=== PATIENT | female | born 1970 | race African-American/Black ===

== ENCOUNTER 2016-12-17 09:52 | Outpatient (CLI) | payer BC ==
[~2016-12-17] VITALS: Ht 152.4 cm; Wt 84.2 kg
[2016-12-17 10:04] VITALS: BP 135/82
[2016-12-17 10:33] LABS: BASOPHILS % (AUTO) 1 % (0-10); EOSINOPHILS # (AUTO) 0.4 10^3/uL (0.0-0.3); EOSINOPHILS % (AUTO) 8 % (0-10); LYMPHOCYTES # (AUTO) 1.8 X 10^3 (1.0-4.0); LYMPHOCYTES % (AUTO) 42 % (12-44); MEAN CORPUSCULAR HEMOGLOBIN 24 PG (25-34); MEAN CORPUSCULAR HGB CONC 33 G/DL (32-36); MEAN CORPUSCULAR VOLUME 75 FL (80-99); MEAN PLATELET VOLUME 11.4 FL (7.4-10.4); MONOCYTES # (AUTO) 0.3 X 10^3 (0.0-1.0); MONOCYTES % (AUTO) 8 % (0-12); NEUTROPHILS # (AUTO) 1.7 X 10^3 (1.8-7.8); NEUTROPHILS % (AUTO) 40 % (42-75); PLATELET COUNT 326 10^3/uL (130-400); RED CELL DISTRIBUTION WIDTH 16.1 % (10.0-14.5); WHITE BLOOD COUNT 4.2 10^3/uL (4.3-11.0)
== END 2016-12-17 11:49 | disposition home or self-care (01) ==
LOC: PREOP 09:52
PROVIDERS: ATTEND Obstetrics & Gynecology
DX: Z01.812 Encounter for preprocedural laboratory examination (principal); D25.9 Leiomyoma of uterus, unspecified; D64.9 Anemia, unspecified
CPT/HCPCS: 36415; 85025; 86850; 86900; 86901

== ENCOUNTER 2016-12-24 06:45 | Day surgery (SDC) | payer BC ==
[~2016-12-24] VITALS: Ht 152.4 cm; Wt 84.2 kg
[2016-12-24] MEDS ORDERED: NS (IVPB) 50 ML ONE (07:13)
[2016-12-24] MEDS ORDERED: ceFAZolin 1,000 MG (ANCEF) VIAL ONE (07:13)
[2016-12-24] MEDS: LACTATED RINGERS 1,000 ML IV PRN ×2 (07:15→08:55)
[2016-12-24] MEDS ORDERED: DEXAMETHASONE PF 10 MG/ML (DECADRON) VIAL ONE (07:16)
[2016-12-24] MEDS ORDERED: proPOfol 200 MG/20 ML (DIPRIVAN) VIAL IV ONE (07:17)
[2016-12-24] MEDS ORDERED: MIDAZOLAM 2 MG/2 ML (VERSED) VIAL ONE (07:17)
[2016-12-24] MEDS ORDERED: fentaNYL INJECTION 250 MCG/5 ML AMP ONE (07:17)
[2016-12-24] MEDS ORDERED: ONDANSETRON 4 MG/2 ML (SDV) Z0FRAN ONE (07:17)
[2016-12-24] MEDS ORDERED: ROCURONIUM 50 MG/5 ML (ZEMURON) VIAL IV ONE (07:17)
[2016-12-24] MEDS ORDERED: SEVOFLURANE (ULTANE) 15 ML INHAL SOLN ONE (07:17)
[2016-12-24] MEDS ORDERED: LIDOCAINE PF 2% 10 ML (XYLOCAINE) AMP ONE (07:17)
[2016-12-24 07:30] VITALS: BP 134/84
--- NOTE | 2016-12-24 08:08 | Progress Note-Pre Operative ---
Pre-Operative Progress Note H&P Reviewed The H&P was reviewed, patient examined and no changes noted. Date H&P Reviewed: Dec 24, 2016 Time H&P Reviewed: 08:07 Pre-Operative Diagnosis: DUB/mmenorrhagia/fibroid JASEMET MACIAS MD Dec 24, 2016 8:08 am
[2016-12-24] MEDS ORDERED: BUP/EPI 0.25% 1:200,000 (MARCAINE) 30 ML VIAL ONE (08:09)
[2016-12-24] MEDS ORDERED: CATHETER FLUSH 10 ML SYR IV PRN (08:15)
[2016-12-24] MEDS ORDERED: BENZOCAINE/MENTHOL (DERMOPLAST) 56 ML CAN TP PRN (08:15)
[2016-12-24] MEDS ORDERED: PROMETHAZINE INJ 25 MG/ML (PHENERGAN) AMP IM PRN (08:15)
[2016-12-24] MEDS ORDERED: ONDANSETRON 4 MG/2 ML (SDV) Z0FRAN IVP PRN ×2 (08:15→10:30)
[2016-12-24] MEDS ORDERED: MEPERIDINE (DEMEROL) INJ 100 MG/ML IM PRN (08:15)
[2016-12-24] MEDS ORDERED: WATER (STERILE) FOR INJ 10 ML BTL INJ ONE (08:15)
[2016-12-24] MEDS ORDERED: oxyCODONE/APAP 10/325MG (PERCOCET 10) TABLET PO PRN (08:15)
[2016-12-24] MEDS ORDERED: ceFAZolin 1 GM/NS 50 ML IVPB IV ONE ×2 (08:15)
[2016-12-24] MEDS ORDERED: ESTROGENS CONJ IV 25 MG/5 ML (PREMARIN) VIAL IVP ONE (08:15)
[2016-12-24] MEDS ORDERED: LACTATED RINGERS 1,000 ML IV ONE (09:12)
[2016-12-24] MEDS ORDERED: GLYCOPYRROLATE 0.2 MG/ML (ROBINUL) 2 ML VIAL ONE (09:12)
[2016-12-24] MEDS ORDERED: NEOSTIGMINE (BLOXIVERZ ) 1 MG/1ML 10 ML VIAL ONE (09:12)
[2016-12-24] MEDS ORDERED: ESTRADIOL VAGINAL CREAM 42.5 GM (ESTRACE) VG ONE (09:16)
[2016-12-24] MEDS ORDERED: morphine INJ 10 MG/ML 1ML (SYR OR VIAL) ONE (09:30)
[2016-12-24] MEDS: morphine INJ 10 MG/ML 1ML (SYR OR VIAL) IVP PRN ×2 (10:27→10:32)
[2016-12-24] MEDS ORDERED: fentaNYL INJECTION 100 MCG/2 ML AMP IVP PRN (10:30)
[2016-12-24] MEDS: KETOROLAC 30 MG/ML VIAL IVP SCH ×3 (10:33→23:28)
[2016-12-24] MEDS: HYDROmorphone (DILAUDID) 2 MG/ML VIAL IVP PRN ×2 (10:40→10:50)
[2016-12-24] MEDS: D5 LR IV SOLUTION 1,000 ML IV SCH ×2 (11:45→19:49)
[2016-12-24 12:00] VITALS: BP 118/72
[2016-12-24 16:00] VITALS: BP 139/84
[2016-12-24] MEDS: SIMETHICONE 80 MG (MYLICON) CHEW PO SCH (19:48)
[2016-12-24 20:00] VITALS: BP 116/67
[2016-12-24] MEDS ORDERED: IBUPROFEN 600 MG (MOTRIN) TAB PO ONE (23:08)
[2016-12-24] MEDS ORDERED: IBUPROFEN 800 MG (MOTRIN) TAB PO ONE (23:09)
[2016-12-24] MEDS: IBUPROFEN 800 MG (MOTRIN) TAB PO SCH (23:22)
[2016-12-24 23:34] VITALS: BP 144/75
[2016-12-25] MEDS: KETOROLAC 30 MG/ML VIAL IVP SCH (02:15)
[2016-12-25] MEDS: D5 LR IV SOLUTION 1,000 ML IV SCH (02:40)
[2016-12-25] MEDS ORDERED: IBUPROFEN 800 MG (MOTRIN) TAB PO ONE (04:28)
[2016-12-25 05:00] VITALS: BP 137/78
--- NOTE | 2016-12-25 08:19 | Progress Note-Standard ---
Standard Progress Note Progress Notes/Assess & Plan Progress/Assessment & Plan this patient is without complaint. She is ambulating, voiding, tolerating by mouth well, patient has good pain control and is requesting discharge home. She denies chest pain, denies shortness of breath, denies nausea vomiting, and denies headache. Vital Signs Date Time Temp Pulse Resp B/P (MAP) Pulse Ox O2 Delivery O2 Flow Rate FiO2 12/25/16 05:00 99.4 75 18 137/78 100 Room Air 12/24/16 23:34 98.3 68 18 144/75 97 Room Air 12/24/16 20:00 98.5 88 18 116/67 98 Room Air 12/24/16 16:00 97.5 62 17 139/84 100 Room Air 12/24/16 12:00 97.3 63 17 118/72 100 Room Air 12/24/16 10:50 97.4 12/24/16 10:40 97.4 12/24/16 10:33 97.4 12/24/16 10:32 97.4 12/24/16 10:27 97.4 I & O 12/25/16 07:00 Intake Total 5015 ml Output Total 3875 ml Balance 1140 ml vital signs are stable. Patient afebrile. The abdomen is benign. Bowel sounds are present in all 4 quadrants. Extremities show no clubbing cyanosis. There is no Homans sign. Assessment and plan postoperative day number 1 status post total hysterectomy with bilateral salpingo-oophorectomy and posterior posterior vaginal repair with enterocele repair doing well. Plan is for discharge home with follow-up in clinic. Final Diagnosis dysfunctional uterine bleeding/menorrhagia/uterine fibroids JASMEET MACIAS MD Dec 25, 2016 8:19 am
[2016-12-25] MEDS ORDERED: IBUP-1780 PO (08:21)
[2016-12-25] MEDS ORDERED: OXYC-465 PO (08:21)
[2016-12-25] MEDS ORDERED: ESTR1TAB24 PO (08:21)
[2016-12-25] MEDS ORDERED: DOCU100C37 PO (08:21)
--- NOTE | 2016-12-25 08:22 | Discharge Instructions ---
Discharge Instructions Discharge Medications New, Converted or Re-Newed RX: RX on Chart Patient Instructions Patient Instructions: as directed Return to The Hospital For: as directed Activity & Diet Discharge Diet: No Restrictions Activity as Tolerated: No Orders-Post D/C & Referrals Follow Up Appt: return to clinic with me on Tuesday, December 29, 2016 for staple removal Call to make follow up appt. for patient in 4 weeks. Activity: Rest for 24 hours, than as tolerated. Wound Care: May remove Band-Aid tomorrow. Replace as desired. Keep incisions clean and dry. Wash daily with soap and water. Please call in RX to patient pharmacy. Diet: As tolerated-Clear Liquids only if nauseated. Tomorrow, may shower or tub bathe as desired. No driving for 24 hours, no alcoholic beverages for 24 hours, and nothing per vagina (no tampons, douching, or intercourse) for 8 weeks. Patient to return to the clinic as soon as possible for: Temperature greater than 101F, Severe Pain, Foul discharge from incision or vagina, Excessive Bleeding (more than a period). JASMEET MACIAS MD Dec 25, 2016 8:22 am
[2016-12-25] MEDS ORDERED: ESTRADIOL 1 MG TAB (ESTRACE) PO SCH (09:00)
[2016-12-25] MEDS ORDERED: DOCUSATE SODIUM 100 MG (COLACE) CAP PO SCH (09:00)
[2016-12-25] MEDS: IBUPROFEN 800 MG (MOTRIN) TAB PO SCH (09:09)
[2016-12-25 09:10] VITALS: BP 104/86
[2016-12-25] MEDS: SIMETHICONE 80 MG (MYLICON) CHEW PO SCH (09:24)
--- NOTE | 2016-12-28 09:03 | OPERATIVE REPORT ---
PROCEDURE PHYSICIAN: JASMEET MACIAS DATE OF PROCEDURE: 12/24/2016 PREOPERATIVE DIAGNOSES: 1. Dysfunctional uterine bleeding. 2. Menorrhagia. 3. Uteromegaly. 4. Vaginal prolapse. 5. Stress incontinence. POSTOPERATIVE DIAGNOSES: 1. Dysfunctional uterine bleeding. 2. Menorrhagia. 3. Uteromegaly. 4. Vaginal prolapse. 5. Stress incontinence. OPERATIVE PROCEDURE: Total laparoscopic hysterectomy with bilateral salpingo- oophorectomy as well as some adhesiolysis with robotic assistance followed by anterior and posterior vaginal repairs. OPERATIVE DESCRIPTION: With the patient in the supine position, under satisfactory general anesthesia, she was repositioned in dorsal lithotomy position in the [facility] and prepped and draped usual fashion for abdominal and vaginal surgery using robotic assistance. Weighted speculum was placed in posterior fornix of the vagina. Cervix exposed and grasped anteriorly with single-tooth tenaculum. The uterus sounded to 13 cm with uterine sound. The cervix was then serially dilated with Jamar dilators to accommodate a DENISE 2 manipulator, which is placed using a 6 mm x 8 cm uterine probe, a 35 mm colpotomy ring and sutures of number 1 Vicryl at the 3 and 9 o'clock positions of the cervix for securement of the cervix to the manipulator. Lui cath was placed in the urinary bladder. The patient was brought in low dorsal lithotomy position. A 12 mm incision made 4 cm superior to the umbilicus. 8 mm incisions were made 9 cm lateral to the umbilicus at the level of umbilicus. All 3 incision sites were infiltrated with 0.25% Marcaine with epinephrine prior to incision. A Veress needle was placed through the umbilical incision. Correct placement confirmed with the water drop test and the abdomen was insufflated with 2.4 liters of carbon dioxide. The Veress needle was removed and a 12 mm port placed. The laparoscope was introduced and 8 mm ports were placed under direct vision and the lateral incisions. The patient was now placed in Trendelenburg, allowing the bowel to spill up out of the pelvis exposing normal but somewhat atretic appearing ovaries with a likely corpus luteal cyst on the left. The uterus was multilobular with large fibroids involving the entire body of the uterus. The ureters were seen to peristalt bilaterally. The appendix was normal in appearance. The tip of the appendix had adhesions down into the pelvis that was long, light and filmy. This was divided and as it was a vascular, no bleeding was occurred there. The appendix was left in situ. The right tube and ovary were grasped and elevated. The vessel sealer was used to clamp across the IP ligament. That ligament was then cauterized, and divided. That was continued stepwise across the mesovarium to the round ligaments and then across the round ligament and broad ligaments to the side of uterus and then down onto the cardinal ligament. The same procedure was performed on the left allowing for removal of both tubes and ovaries eventually with the uterus. The anterior lower uterine segment was exposed. The vessel sealer was replaced with a monopolar shear. A bipolar fenestrated grasper had been on the left this entire time. The anterior lower uterine segment peritoneum was divided. The bladder was carefully dissected down off of the lower uterine segment and off of the cervix. The colpotomy incision was then made at 12 o'clock position and continued circumferentially until the entire colpotomy ring was exposed, freeing the uterus, tubes and ovaries, which was extracted with some difficulty through the vagina due to the large nature of the uterus. The vaginal cuff was now closed using a Cobra grasper on the left and a phillip cut needle transit mixer driver on the right using 2 barbed V lock sutures starting first from the right angle and then from the left including the uterine vessels in the closure to insure hemostasis. The peritoneum was brought back down over the vaginal cuff with the last 2 stitches taken. Hemostasis was complete. The pelvis was irrigated and examined for hemostasis and for abnormal pathology. Everything looked normal and with no bleeding, the procedure was terminated. The operative instruments were removed under direct vision as were the ports. The patient brought out of Trendelenburg. The abdomen was evacuated of the insufflating gas in the process of removing the port. The skin incisions were closed with tino after the fascia at the umbilical incision was closed with [id number] suture of 2-0 Vicryl. The patient was now repositioned in dorsal lithotomy position in the [facility] for anterior and posterior vaginal repairs. The anterior repair was affected by placing Jeramy clamps on the anterior vaginal wall, opening the vaginal wall with Metzenbaum scissors, exposing the bladder and dissecting back to the pubic rami bilaterally. The endopelvic fascia was then plicated with 2-0 Vicryl sutures elevating the bladder and lengthening the urethra and effectively including a Esha plication for support of the urethra. Lui catheter had been left in the urinary bladder during this time and the Lui catheter was freed and moved mobile in urethra. With the support completed, the redundant anterior vaginal muscularis and mucosa was removed sharply. The vaginal wall was then closed with a running lock suture of 3-0 Vicryl Rapide. Posterior repair was affected by placing Jeramy clamps on the perineum and hymenal ring at 5 and 7 o'clock positions. An inverted triangle of skin was removed from the perineal body and an upright triangle from the posterior vaginal floor. The rectovaginal space was dissected to near its apex where there was a small enterocele encountered. This was reduced and plicated with 2, 2-0 Vicryl pursestring sutures. The rectovaginal space was then obliterated with additional suture of 2-0 Vicryl. The perineal body was restored with 2-0 Vicryl sutures and then the redundant posterior vaginal muscularis mucosa was removed sharply. The vaginal wall was closed with running locked suture of 3-0 Vicryl Rapide. That closure was continued past the hymenal ring down on the perineal body then back up subcutaneous to where the suture could be tied the hymenal ring. Digital rectal exam confirmed no stricture or stenosis of the rectum. The vaginal cuff was completely closed and hemostatic. There was no bleeding from the anterior or posterior dissections. The vagina was now filled with esterase vaginal cream and a pack of Kerlix gauze was placed. Lui catheter was left to dependent drainage. It was draining clear yellow urine. Sponge and needle counts were correct at the end of procedure. Estimated blood loss for the procedure was around 150 mL. The patient tolerated the procedure well, was uneventfully awakened from her general anesthesia and transferred to recovery room in stable condition. Job ID: [id number] Dictated Date: 12/24/2016 10:06:33 Consulting Technical Director Date: 12/28/2016 08:39:53 / efren
== END 2016-12-25 09:40 | disposition home or self-care (01) ==
LOC: SDC 06:45 → WS 11:30 → SDC 12-25 09:40
PROVIDERS: ATTEND Obstetrics & Gynecology
DX: N93.8 Other specified abnormal uterine and vaginal bleeding (principal); N92.0 Excessive and frequent menstruation with regular cycle; N85.8 Other specified noninflammatory disorders of uterus; D25.1 Intramural leiomyoma of uterus; N83.01 Follicular cyst of right ovary; N81.10 Cystocele, unspecified; N39.3 Stress incontinence (female) (male)
CPT/HCPCS: 84703; 87081; 88307; 96361; 96375

== ENCOUNTER → 2021-12-08 | Outpatient (CLI) | payer BC ==
[~2021-12-08] MED LIST: DOCU100C37 PO; ESTR1TAB24 PO; IBUP-1780 PO; OXYC-556 PO
== END ==
LOC: LABNPT 15:12
PROVIDERS: ATTEND Family Medicine
DX: Z53.9 Procedure and treatment not carried out, unspecified reason (principal)
CPT/HCPCS: 80053; 85025